=== PATIENT | male | born 1940 | race Caucasian/White ===

== ENCOUNTER 2018-10-31 15:51 | Inpatient (IN) | payer OTHER ==
[~2018-10-31] VITALS: Ht 172.7 cm; Wt 103.9 kg
--- NOTE | ~2018-10-31 | CON ---
[address] [address] CONSULTATION Name: KIRAN ANDREWS Room: [address] ADM IN M.R.#: [id number] Admission: 10/31/18 Attend Phys: John Rocha Discharge: Date of : 36 Report #: [id number] THIS REPORT FOR: //name// CC: Umesh Adams DO DATE OF SERVICE: 11/01/2018 REQUESTING PHYSICIAN: Roberto Adams DO. HISTORY OF PRESENT ILLNESS: This is an 78-year-old male with history of diabetes mellitus and renal disease who gets dialyzed routinely. The patient was admitted to hospital after his had found him lying on the floor on the day of admission. The patient claims that he was sitting on a chair and he slid and fell on the floor. He denies any loss of consciousness. We were consulted since the patient had reported a couple of days of diarrhea. Talking to nursing staff, the patient had only one stool today, which was formed. Nursing staff denied any hematochezia, melena or diarrhea. The patient denies any GI symptoms at this time as he denies nausea, vomiting, dyspepsia, GERD, dysphagia, abdominal pain, diarrhea or constipation. He admits to having a normal stool this morning. PAST MEDICAL HISTORY: Significant for history of kidney disease, receiving dialysis. The patient also has COPD, history of bilateral cataract surgery, history of CVA with residual left-sided weakness, hypertension, diabetes mellitus, dyslipidemia. ALLERGIES: No known drug allergy. MEDICATIONS: Please refer to hospital MAR. SOCIAL HISTORY: The patient is , lives at home and has kidney disease, receiving dialysis. The patient denies tobacco or alcohol use. FAMILY HISTORY: Noncontributory. PHYSICAL EXAMINATION: VITAL SIGNS: Reveals blood pressure of 132/57, respirations 22, pulse 62, temperature 36.8. LUNGS: Clear. CARDIOVASCULAR: Regular. ABDOMEN: Soft, nontender, nondistended. [place] [address] CONSULTATION Name: KIRAN ANDREWS Room: [address] IN [facility]#: [id number] Admission: 10/31/18 Attend Phys: John Rocha Discharge: Date of : 38 Report #: [id number] LABORATORY DATA: Reveal sodium of 140, potassium is 4.1, BUN is 25, creatinine is 2.5, glucose is 215, AST is 38, ALT is 30, alkaline phosphatase is 182, total bilirubin is 0.5, albumin is 2.6. INR is 1.0. WBC is 7.0 with hemoglobin of 11.3 and platelets of 210. IMAGING: Chest x-ray was obtained on admission after placement of a central vein catheter and this was negative. ASSESSMENT AND PLAN: A patient who was admitted to hospital after suffering a fall who had reported that he had diarrhea for the past couple of days, but currently denies any gastrointestinal symptoms and had a formed stool today. He is tolerating diet at this time and there are no alarming symptoms. We will follow up on p.r.n. basis. By: 1335 [id number] Palumbo MD /nt
[~2018-10-31 15:51] MED LIST: ALDACTONE25 MG PO; ASPIRIN EC81 M1 PO; ATORVASTATIN CA40 MG PO; BISAC-EVAC10 MG RECTAL; BISACODYL5 MG PO; BROVANA15 MCG/2 M INH; CARVEDILOL12.5 MG PO; CARVEDILOL25 MG; CLONIDINE HCL0.3 M2 PO; CLONIDINE0.1 PO; COLACE100 MG; DOXYCYCLINE 10100 MG PO; EPOGEN2000 UNIT/ IVPUSH; FISH OIL 1,001000 M2 PO; FISHOIL; HUMULIN N100 UNIT/1 SUBQ; HYDRALAZINE 5050 MG PO; HYDROCODON-ACE1 EAC5; HYDROCODON-ACE1 EAC7 PO; HYDROCODONE-AP1 EAC6 PO; LANTUS100 UNIT/M SUBQ; LASIX 20 MG TAB20 MG PO; LIDODERM 5%1 PATC1 TRANSDERM; MELATONIN5 M1 PO; MIACALCIN NASAL; NORVASC 5 MG TAB5 MG PO; NORVASC10 MG PO; NOVOLIN R100 UNIT/3 SUBQ; PANTOPRAZOLE SO40 M1 PO; PARICALCITOL1 MCG PO; PREDNISONE 10 M10 MG PO; SENNA-DOCUSATE1 EACH PO; SIMVASTATIN40 MG PO; TAMSULOSIN HCL0.4 MG PO; TYLENOL325 MG PO; VITAMIN B-121000 MCG PO; VITAMIN D1000 UNI1 PO; [UNRECOGNIZED DRUG - OTHER]
[2018-10-31 15:52] VITALS: BP 141/79
[2018-10-31 16:17] LABS: ABSOLUTE LYMPHOCYTES 0.6 thou/uL (0.8-5.3); ABSOLUTE MONOCYTES 0.6 thou/uL (0.0-1.2); ABSOLUTE NEUTROPHILS 5.8 thou/uL (1.6-8.1); BASOPHILS 0.2 %; EOSINOPHILS 0.3 %; HEMATOCRIT 35.3 % (42.0-52.0); HEMOGLOBIN 11.3 gm/dL (14.0-18.0); LYMPHOCYTES 8.5 %; MCH 28.4 pg (26.0-34.0); MCHC 32.1 g/dL (28.0-37.0); MCV 88.5 fL (80.0-100.0); MONOCYTES 7.9 %; MPV 8.4 fl. (7.2-11.1); NUCLEATED RBCS 0 /100WBC; PLATELET COUNT* 210 thou/uL (150-400); POLYS 83.1 %; RBC 3.98 mil/uL (4.50-6.00); RDW-CV 17.8 % (10.5-14.5)
[2018-10-31 16:26] LABS: ANION GAP 10 mmol/L (7-16); BUN 25 mg/dL (7-18); CALCIUM 9.4 mg/dL (8.5-10.1); CHLORIDE 102 mmol/L (98-107); CO2 28 mmol/L (21-32); CREATININE 2.5 mg/dL (0.6-1.3); GLUCOSE 90 mg/dL (70-99); POTASSIUM 4.1 mmol/L (3.5-5.1); SODIUM 140 mmol/L (136-145)
[2018-10-31 16:32] LABS: APTT 34.7 Seconds (25.0-31.3); PROTIME 10.6 Seconds (9.20-11.50)
[2018-10-31 16:36] LABS: ALBUMIN 2.6 g/dL (3.4-5.0); ALKALINE PHOSPHATASE 182 U/L (46-116); NT-PRO BRAIN NAT PEPTIDE 27826 pg/mL (<300); SGOT 38 U/L (15-37); SGPT 30 U/L (30-65); TOTAL BILIRUBIN 0.5 mg/dL (<0.1-1.0); TOTAL PROTEIN 7.3 g/dL (6.4-8.2); TROPONIN-I LEVEL <0.06 ng/mL (<0.06)
[2018-10-31 19:25] VITALS: BP 100/48
[2018-10-31 22:00] VITALS: BP 122/52
[2018-11-01] VITALS (7 sets, daily range): BP systolic 120–136; BP diastolic 52–64
--- NOTE | 2018-11-01 06:08 | NUR ---
PT ADMITTED TO ICU 1 FORM ER VIA STRETCHER, PT MOVED PER STAFF TO HOSPITAL BED. PT AAOX4, RESP REG AND UNALBORED SKIN W/D NO ACUTE DISTRESS NOTED. PT ORIENTED TO ROOM, BED CONTROL AND NURSE CALL SYSTEM EXPLAINED TO PATIENT. PT VERBALIZED GOOD UNDERSTANDING. VSS AND NO ACUTE CHANGES DURING NIGHT. PT DESATS WHEN SLEEPING AND O2 APPLIED AT 3L BNC. IT DESKTOP SUPPORT SPECIALIST INTACT WITH ALARMS SET. WILL CONTINUE OT MONITOR
--- NOTE | 2018-11-01 10:17 | EKG ---
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 : 1940 Requested By: Jimi Duong Order Number: [id number] MD: Andrez Eli Measurements Intervals [place] Rate: 103 P: MI: QRS: 7 QRSD: 96 T: 92 QT: 343 QTc: 449 Interpretive Statements sinus tachycardia artifact noted Low voltage, precordial leads Compared to ECG 10/25/2017 10:30:57 Low QRS voltage now present Sinus rhythm no longer present Electronically Signed On 11-01-2018 10:17:23 BALE PILER by Andrez Eli [email or web address] <ELECTRONICALLY SIGNED> By: Andrez Eli MD, FACC 11/01/18 1017 1602 1602 Andrez Eli MD, [facility] /EPI
--- NOTE | 2018-11-01 11:18 | NUR ---
Nutrition: Consult received stating "dialysis." Pt has HD MWF. Wt: 235#, BLE edema. diarrhea better, sepsis resolved. RX noted. Labs: BUN 25, cr 2.5, alb 2.6, prealb 11. Regular diet is ordered. Severely depleted visceral protein stores. Altered nutrition-related lab values R/T protein AEB labs, pt on HD. RD will order Beneprotein for added protein intake with meals. Mild risk at this time.
--- NOTE | 2018-11-01 11:24 | NUR ---
MET WITH PT TO DISCUSS HOME SITUATION/DC PLANNING. PT LIVES WITH HIS SON/PINEDA WHO IS HIS DPOA. PT IS INDEPENDENT WITH ADLS. USES WALKER AND HAS A SCOOTER HE USES WHEN HE GOES OUTSIDE 'IN THE YARD'. [facility]. SPOKE WITH ZINA THERE. THEY WILL NEED FLOW SHEETS AND DC INFO FAXED AT CT. PT HAS HAD HH WITH [facility] IN THE PAST AND WOULD LIKE TO USE THEM AGAIN AT [place]. HE HAS ALSO BEEN TO SNF AT [facility] AND [facility]. SPOKE WITH J[facility]ET/JOS[facility], THEY JUST DC'D PT ON 10/18 BUT WILL ACCEPT PT BACK AT DC. WILL NEED CALL AND ORDERS. [email or web address] [phone] FAX [phone] [facility] [phone] FAX [phone]
--- NOTE | 2018-11-01 14:55 | NUR ---
PATIENT ALERT AFIB PER MONITOR DENIES PAIN OR SOA. UP TO COMMODE TIMES 2. AFIB PER MONITOR.
[2018-11-01 19:08] LABS: GLYCOHEMOGLOBIN (HGB A1C) 6.6 % (4.8-5.6)
--- NOTE | 2018-11-01 19:27 | NUR ---
PATIENT TOLERATED DIALYSIS. ALERT DENIES DISTRESS TAKING PO WELL. REPORT GIVEN TO JINA VELAZQUEZFERED TO RM 228'
[2018-11-02] VITALS: BP 133/54
--- NOTE | 2018-11-02 00:10 | NUR ---
ASSESSMENT COMPLETE, REFER TO CHARTING FOR FURTHER DETAIL. PT IS MED SURG STATUS. PT DENIES PAIN, SOA, N/V/D. CLWR
[2018-11-02 02:53] LABS: URINE BILIRUBIN NEGATIVE (Negative); URINE BLOOD NEGATIVE (Negative); URINE CLARITY CLEAR; URINE COLOR YELLOW; URINE GLUCOSE-RANDOM TRACE (Negative); URINE KETONES NEGATIVE (Negative); URINE LEUKOCYTES-REFLEX NEGATIVE (Negative); URINE NITRITE-REFLEX NEGATIVE (Negative); URINE PROTEIN 1+ (Negative); URINE UROBILINOGEN 0.2 E.U./dl (0.2-1.0)
[2018-11-02 03:23] LABS: ABSOLUTE EOSINOPHILS 0.3 thou/uL (0.0-0.7); ABSOLUTE MONOCYTES 0.5 thou/uL (0.0-1.2); BASOPHILS 0.6 %; EOSINOPHILS 5.8 %; HEMATOCRIT 27.3 % (42.0-52.0); LYMPHOCYTES 21.7 %; MCH 28.7 pg (26.0-34.0); MCHC 32.8 g/dL (28.0-37.0); MCV 87.5 fL (80.0-100.0); MONOCYTES 9.6 %; MPV 8.2 fl. (7.2-11.1); NUCLEATED RBCS 0 /100WBC; PLATELET COUNT* 164 thou/uL (150-400); POLYS 62.3 %; RBC 3.12 mil/uL (4.50-6.00); RDW-CV 17.4 % (10.5-14.5); WBC 4.8 thou/uL (4.0-11.0)
[2018-11-02 03:25] LABS: HEMOGLOBIN 8.9 gm/dL (14.0-18.0)
[2018-11-02 03:38] LABS: CALCIUM 8.5 mg/dL (8.5-10.1); CREATININE 1.8 mg/dL (0.6-1.3); PHOSPHORUS* 3.8 mg/dL (2.5-4.9); POTASSIUM 3.6 mmol/L (3.5-5.1)
[2018-11-02 04:00] VITALS: BP 140/57
--- NOTE | 2018-11-02 05:32 | NUR ---
PATIENT RESTED IN BED, NO ACUTE CHANGES. PATIENT DID NOT SHOW SIGNS OF DISTRESS OR SOA. FALL PRECAUTIONS IN PLACE, CALL LIGHT WITH IN REACH, HOURLY ROUNDING OBSERVED, BED ALARM ON.
[2018-11-02 09:30] VITALS: BP 126/80
--- NOTE | 2018-11-02 10:00 | CON ---
[address] [address] CONSULTATION Name: KIRAN ANDREWS Room: [address] IN .R.#: [id number] Admission: 10/31/18 Attend Phys: John Rocha Discharge: Date of : 38 Report #: [id number] THIS REPORT FOR: //name// CC: Umesh Jerrytrudy Roberto Adams DATE OF SERVICE: 11/01/2018 NEPHROLOGY CONSULTATION CONSULTING PHYSICIAN: Roberto Adams DO. REASON FOR NEPHROLOGY CONSULTATION: End-stage renal disease. REASON FOR ADMISSION: Hypoglycemia and weakness. HISTORY OF PRESENT ILLNESS: This is a very pleasant 78-year-old male who has a past medical history of diabetes mellitus type 2, hypertension and end-stage renal disease, on hemodialysis every Tuesday, Tuesday and Tuesday at Dialysis Unit under the care of Dr. Montoya and was brought in because his blood glucose dropped and the patient was very weak. He also fell on the floor and he was given peanut butter and juice, but that did not improve his blood glucose. He is currently in the ICU and his blood glucose readings have improved. He also says that since he has been on dialysis, he has lost a lot of weight due to which he does not need that much insulin anymore and even he does not require oxygen anymore at home. He is currently a little bit short of breath and he does have lower extremity edema and his last dialysis was Tuesday. ALLERGIES: No known drug allergies. REVIEW OF SYSTEMS: As mentioned in the history of present illness. HOME MEDICATIONS: Include hydrocodone, Epogen, furosemide, melatonin, cyanocobalamin, acetaminophen, hydralazine, aspirin, tamsulosin, simvastatin, insulin glargine and Novolin insulin. PAST MEDICAL AND SURGICAL HISTORY: Diabetes mellitus type 2; hypertension; end-stage renal disease, on hemodialysis Tuesday, Tuesday and Tuesday through left arm AV fistula; hyperlipidemia; bilateral cataract surgery; history of CVA with left-sided weakness; tonsillectomy and COPD. FAMILY HISTORY: Noncontributory. SOCIAL HISTORY: He lives at home with his son. He does not smoke, drink alcohol [place] [address] CONSULTATION Name: KIRAN ANDREWS Room: [address]#: [id number] Admission: 10/31/18 Attend Phys: John Rocha Discharge: Date of : 38 Report #: [id number] PHYSICAL EXAMINATION: VITAL SIGNS: Blood pressure is 120/57, pulse rate is 76, respiratory rate is 23, pulse ox is 92% and he is on 3 liters of oxygen by nasal cannula and temperature is 36.4. GENERAL: He is awake, alert. He is oriented x3. HEAD, EYES, EARS, NOSE AND THROAT: Mucous membranes are moist. NECK: There is no JVD. CHEST: Diminished breath sounds bilaterally anteriorly. CARDIOVASCULAR: S1, S2 normal. No murmurs heard. ABDOMEN: Soft nondistended and nontender. Bowel sounds are present. EXTREMITIES: There is 2 to 3+ lower extremity edema bilaterally. DIALYSIS ACCESS: He has a left arm AV fistula with good bruit and good thrill. NEUROLOGICAL FUNCTION: Gross neurologic function is intact. PSYCHIATRIC: Mood and affect seem to be normal. LABORATORY DATA: Hemoglobin 11.3. His potassium is 4.1. Other labs were reviewed. Sodium was 140. IMAGING: Chest x-ray was reviewed. ASSESSMENT: 1. End-stage renal disease, on hemodialysis every Tuesday, Tuesday and Tuesday at Dialysis Unit. 2. Hypokalemia. 3. Diabetes type 2. 4. Hypoglycemia. 5. Hypertension. 6. History of chronic obstructive pulmonary disease. 7. Possible right lower lobe pneumonia, on antibiotics as per primary team. PLAN: Dialysis today. We will try to remove 4 to 4.5 liters off of him since he does look hypervolemic, as tolerated by him. His hemoglobin is currently at goal. He does not require any Epogen or iron at this time. Thank you for this consultation and we will continue to follow along with you for his dialysis needs. I discussed with the patient as well as the patient's nurse. <ELECTRONICALLY SIGNED> By: Cailtyn Gao MD 11/02/18 1000 [id number] Gao MD /nt
[2018-11-02 16:06] VITALS: BP 118/67
--- NOTE | 2018-11-02 18:20 | NUR ---
PT ALERT ORIENTED X 4. IV PATENT. DENIES PAIN. WEARS BRACE ON LEFT KNEE. FISTULA PRESENT LEFT UPPER ARM. UP TO CHAIR IN EVENING WITH GAIT BELT AND WALKER. OXYGEN @ 2 L/NC. VS STABLE. HOURLY ROUNDS MAINTAINED. CALL LIGHT WITHIN REACH.
[2018-11-02 19:00] VITALS: BP 144/64
[2018-11-03 05:00] LABS: HEMATOCRIT 28.7 % (42.0-52.0); HEMOGLOBIN 9.3 gm/dL (14.0-18.0); MCH 28.6 pg (26.0-34.0); MCHC 32.5 g/dL (28.0-37.0); MCV 87.9 fL (80.0-100.0); MPV 8.7 fl. (7.2-11.1); RBC 3.26 mil/uL (4.50-6.00); RDW-CV 17.7 % (10.5-14.5); WBC 5.3 thou/uL (4.0-11.0)
[2018-11-03 05:21] LABS: % SATURATION 38 % (20-39); IRON 46 ug/dL (50-175)
[2018-11-03 05:24] LABS: CALCIUM 8.7 mg/dL (8.5-10.1); CREATININE 2.4 mg/dL (0.6-1.3); POTASSIUM 3.7 mmol/L (3.5-5.1)
[2018-11-03 06:16] VITALS: BP 137/59
[2018-11-03 08:25] VITALS: BP 130/87
[2018-11-03 12:06] VITALS: BP 127/55
[2018-11-03 13:48] VITALS: BP 127/55
--- NOTE | 2018-11-03 13:51 | NUR ---
ORDERS NOTED FOR DC HOME. PT WOULD LIKE TO USE [facility], CALLED AND NOTIFIED [facility]OS[facility]. WILL FAX ORDERS WHEN RECEIVED. CALL TO [facility], NOTIFIED PT WILL RETURN TO REGULAR SCHEDULE ON TUESDAY. WILL FAX FLOW SHEETS AND UPDATED ORDERS WHEN RECEIVED. PT STATES HIS SON WILL PICK HIM UP.
[2018-11-03] MEDS ORDERED: LEVAQUIN 750 M750 MG PO (13:52)
[2018-11-03 14:11] VITALS: BP 127/55
[2018-11-03 17:17] VITALS: BP 127/55
--- NOTE | 2018-11-03 17:19 | NUR ---
PATIENT IS ALERT AND ORIENTED TODAY VERY PLEASANT. HAD DIALYSIS TODAY AND TOLERATED WELL. NO COMPLAINTS OF PAIN TODAY OTHER THAN IJ AND MIDLINE SITE IN NECK. VITAL SIGNS HAVE BEEN STABLE ON ROOM AIR TODAY. PATIENT IS DISCHARGED TO HOME WITH HOME HEALTH. DISCHARGE INSTRUCTIONS AND PRESCRIPTIONS GIVEN, QUESTIONS ANSWERED FOR PATIENT AND SON. LEFT VIA WHEELCHAIR TO HOME WITH HOME HEALTH.
== END 2018-11-03 17:20 | disposition home health service (06) | DRG 871 ==
LOC: M.ERS 15:51 → M.ICU 17:03 → M.TBA-ER 17:03 → M.ICU 19:37 → M.2W 11-01 19:44
PROVIDERS: Family Medicine; ADMIT Internal Medicine
PROC: 02HV33Z Insertion of Infusion Device into Superior Vena Cava, Percutaneous Approach (ICD-10-PCS; principal; 2018-10-31)
PROC: 5A1D70Z Performance of Urinary Filtration, Intermittent, Less than 6 Hours Per Day (ICD-10-PCS; 2018-11-03)
DX: A41.9 Sepsis, unspecified organism (principal); N18.6 End stage renal disease; J15.6 Pneumonia due to other Gram-negative bacteria; I69.354 Hemiplegia and hemiparesis following cerebral infarction affecting left non-dominant side; I12.0 Hypertensive chronic kidney disease with stage 5 chronic kidney disease or end stage renal disease; J44.0 Chronic obstructive pulmonary disease with (acute) lower respiratory infection; E78.5 Hyperlipidemia, unspecified; E87.6 Hypokalemia; E11.22 Type 2 diabetes mellitus with diabetic chronic kidney disease; E11.649 Type 2 diabetes mellitus with hypoglycemia without coma; T68.XXXA Hypothermia, initial encounter; D63.8 Anemia in other chronic diseases classified elsewhere; A08.4 Viral intestinal infection, unspecified; Z98.41 Cataract extraction status, right eye; Z98.42 Cataract extraction status, left eye; Z79.82 Long term (current) use of aspirin; Z79.899 Other long term (current) drug therapy; Z99.2 Dependence on renal dialysis

== ENCOUNTER 2018-11-25 05:05 | Emergency (ER) | payer OTHER ==
[~2018-11-25] VITALS: Ht 172.7 cm; Wt 100.7 kg
[~2018-11-25 05:05] MED LIST changes: +LEVAQUIN 750 M750 MG PO
[2018-11-25] MEDS ORDERED: PERCOCET PO (08:01)
[2018-11-25 08:05] VITALS: BP 115/50
== END 2018-11-25 08:19 | disposition home or self-care (01) ==
LOC: M.ERS 05:05
DX: M25.561 Pain in right knee (principal); I12.9 Hypertensive chronic kidney disease with stage 1 through stage 4 chronic kidney disease, or unspecified chronic kidney disease; E11.22 Type 2 diabetes mellitus with diabetic chronic kidney disease; N18.4 Chronic kidney disease, stage 4 (severe); J44.9 Chronic obstructive pulmonary disease, unspecified; E78.5 Hyperlipidemia, unspecified; Z99.2 Dependence on renal dialysis; Z86.73 Personal history of transient ischemic attack (TIA), and cerebral infarction without residual deficits

== ENCOUNTER 2018-12-08 22:45 | Inpatient (IN) | payer OTHER ==
[~2018-12-08] VITALS: Ht 172.7 cm; Wt 97.1 kg
--- NOTE | ~2018-12-08 | CON ---
[address] [address] CONSULTATION Name: KIRAN ANDREWS Room: [address] IN M.R.#: [id number] Admission: 12/09/18 Attend Phys: Jaime Hanna MD Discharge: 12/13/18 Date of : 38 Report #: [id number] THIS REPORT FOR: //name// CC: Jaime Hanna Umesh Morgan DATE OF SERVICE: 12/09/2018 REQUESTING PHYSICIAN: Jaime Hanna MD REASON FOR CONSULTATION: Assist in providing dialysis. HISTORY OF PRESENT ILLNESS: The patient is an 78-year-old gentleman. Medical history is significant for end-stage renal disease. He is being dialyzed on Tuesday, Tuesday, Tuesday schedule at [facility]. He had his dialysis yesterday. After dialysis, he felt too weak, went home and came back today and was admitted for evaluation for his weakness. PAST MEDICAL HISTORY: Significant for: 1. End-stage renal disease. 2. History of pancreatic cancer. 3. History of cerebrovascular accident. 4. History of diabetes mellitus type 2. 5. History of atrial fibrillation. It is not exactly clear, but we are standing on his pancreatic cancer. Apparently, the patient does not follow with any oncologist. SOCIAL HISTORY: No tobacco or alcohol abuse currently. MEDICATIONS: Reviewed. REVIEW OF SYSTEMS: Positive for weakness. Denies chest pain. Denies shortness of breath. PHYSICAL EXAMINATION: GENERAL: Awake, alert, oriented, no acute distress. VITAL SIGNS: Blood pressure 108/66, heart rate 77, afebrile. HEENT: Pupils are round. NECK: Fatty. LUNGS: Clear. CARDIOVASCULAR: Regular rate. ABDOMEN: Soft. LABORATORY DATA: Report potassium is 3.7, BUN 16, creatinine 2[place] [address] CONSULTATION Name: KIRAN ANDREWS ANGELA Room: [address]#: [id number] Admission: 12/09/18 Attend Phys: Jaime Hanna MD Discharge: 12/13/18 Date of : 38 Report #: [id number] ASSESSMENT: 1. End-stage renal disease. The patient had dialysis yesterday. 2. Admission for weakness. Workup is per primary care doctor. 3. Atrial fibrillation. 4. History of pancreatic cancer. PLAN: Follow his labs and I am planning to dialyze him again on Tuesday. By: [id number] Pozo MD /BEATRIZ
[~2018-12-08 22:45] MED LIST changes: +PERCOCET PO
[2018-12-08 22:46] VITALS: BP 124/61
[2018-12-08] MEDS ORDERED: ATORVASTATIN CA40 MG PO (22:56)
[2018-12-08] MEDS ORDERED: LASIX 20 MG TAB20 MG PO (22:56)
[2018-12-08] MEDS ORDERED: FLOMAX0.4 MG PO (22:57)
[2018-12-08] MEDS ORDERED: NORVASC5 MG PO (22:57)
[2018-12-08] MEDS ORDERED: RENA-VITE TABL0.8 MG PO (22:58)
[2018-12-08] MEDS ORDERED: HYDRALAZINE 2525 MG PO (22:58)
[2018-12-08] MEDS ORDERED: ASPIR 8181 MG PO (22:58)
[2018-12-08] MEDS ORDERED: [UNRECOGNIZED DRUG - OTHER] PO (23:00)
[2018-12-08] MEDS ORDERED: SENSIPAR 30 MG30 M1 PO (23:00)
[2018-12-08 23:41] LABS: ABSOLUTE LYMPHOCYTES 0.8 thou/uL (0.8-5.3); BASOPHILS 0.5 %; HEMATOCRIT 31.7 % (42.0-52.0); HEMOGLOBIN 10.5 gm/dL (14.0-18.0); LYMPHOCYTES 10.5 %; MCV 87.9 fL (80.0-100.0); MONOCYTES 12.9 %; MPV 8.8 fl. (7.2-11.1); NUCLEATED RBCS 0 /100WBC; PLATELET COUNT* 134 thou/uL (150-400); POLYS 76.1 %; RBC 3.61 mil/uL (4.50-6.00); RDW-CV 17.5 % (10.5-14.5); WBC 7.9 thou/uL (4.0-11.0)
[2018-12-08 23:51] LABS: CALCIUM 8.7 mg/dL (8.5-10.1); CREATININE 2.5 mg/dL (0.6-1.3); POTASSIUM 3.7 mmol/L (3.5-5.1)
[2018-12-09] VITALS (7 sets, daily range): BP systolic 108–140; BP diastolic 54–66
[2018-12-09 00:14] LABS: TOTAL BILIRUBIN 0.7 mg/dL (<0.1-1.0); TOTAL PROTEIN 5.6 g/dL (6.4-8.2)
[2018-12-09 00:16] LABS: TROPONIN-I LEVEL 0.8 ng/mL (<0.06)
--- NOTE | 2018-12-09 01:30 | NUR ---
RECEIVED REPORT FROM ER AND PT TO ROOM AT 0120. NO ACUTE DISTRESS. DENIES CP OR SOB. O2 ON AT 2L/NC, HOB ELEVATED. TELEMETRY APPLIED SHOWING A-FIB. SHAHRZAD LOWER LEGS, ANKLES AND FEET 2+ EDEMA. NO SKIN ISSUES NOTED TO BUTTOCKS, TOES OR OVER OTHER [place] AREAS. AV GRAFT NOTED TO LT UPPER ARM. PT FELL ASLEEP IN MIDDLE OF ADMISSION QUESTIONS AND AROUSED FOR BLOOD DRAW. WILL CONT TO MONITOR AND ASSIST NEEDED.
--- NOTE | 2018-12-09 06:31 | NUR ---
SLEPT WELL SINCE ADMISSION. TROP ELEVATED, DENIES CHEST PAIN OR SOB. O2 ON, HOB ELEVATED. TELEMETRY CONT TO SHOW A-FIB WITH OCC PVC. HOURLY ROUNDING OBSERVED.
--- NOTE | 2018-12-09 14:50 | NUR ---
INITIAL ASSESSMENT: Pt evaluated for d/c planning needs. Reviewed chart. Pt was hospitalized at [facility] in the past few months and returned home with [facility]. Pt lives with his son João. Pt has dialysis at [facility] . Pt uses walker or scooter for ambulation. Pt plans on returning home on d/c from hospital. Will remain available to assist as needed.
--- NOTE | 2018-12-09 16:16 | NUR ---
PT PROGRESSING TOWARDS GOALS THIS SHIFT. VSS. NO C/O CP. CT ABDOMEN TODAY. REFER TO RESULTS. PT STATES HE FEELS ' BETTER' TODAY. TELE REMAINS AFIB. NO OTHER CONCERNS AT THIS TIME. CLWR. WCTM.
--- NOTE | 2018-12-09 20:43 | NUR ---
DOCTOR KARIE, NOTIFIED OF PATIENT'S BLOOD SUGAR, NO NEW ORDERS.
[2018-12-10] VITALS: BP 123/50
--- NOTE | 2018-12-10 00:49 | NUR ---
PATIENT RESTED IN BED, NO ACUTE CHANGES. PATIENT DID NOT SHOW SIGNS OF DISTRESS OR SOA. FALL PRECAUTIONS IN PLACE, CALL LIGHT WITH IN REACH, HOURLY ROUNDING OBSERVED, BED ALARM ON.
[2018-12-10 04:00] VITALS: BP 107/48
[2018-12-10 05:16] LABS: HEMATOCRIT 33.3 % (42.0-52.0); HEMOGLOBIN 10.9 gm/dL (14.0-18.0); MCH 29.1 pg (26.0-34.0); MCHC 32.6 g/dL (28.0-37.0); MCV 89.2 fL (80.0-100.0); MPV 9.3 fl. (7.2-11.1); NUCLEATED RBCS 0 /100WBC; PLATELET COUNT* 127 thou/uL (150-400); RBC 3.74 mil/uL (4.50-6.00); RDW-CV 18.3 % (10.5-14.5); WBC 7.4 thou/uL (4.0-11.0)
[2018-12-10 05:27] LABS: CALCIUM 8.5 mg/dL (8.5-10.1); CREATININE 2.9 mg/dL (0.6-1.3); POTASSIUM 3.6 mmol/L (3.5-5.1)
[2018-12-10 06:17] LABS: ABSOLUTE LYMPHOCYTES 0.4 thou/uL (0.8-5.3); ABSOLUTE MONOCYTES 0.3 thou/uL (0.0-1.2); ABSOLUTE NEUTROPHILS 6.7 thou/uL (1.6-8.1); ANISOCYTOSIS 1+; PLATELET ESTIMATE ADEQUATE
[2018-12-10 07:58] VITALS: BP 116/58
[2018-12-10 11:49] VITALS: BP 102/45
--- NOTE | 2018-12-10 12:28 | EKG ---
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: : 1940 Requested By: Rusty Crawford Order Number: [id number] MD: Jian Wilcox Measurements Intervals [place] Rate: 83 P: SC: QRS: 2 QRSD: 98 T: 48 QT: 407 QTc: 479 Interpretive Statements Atrial fibrillation Nonspecific T abnormalities, anterior leads Borderline prolonged QT interval No previous ECG available for comparison Electronically Signed On 12-10-2018 12:28:18 FOREIGN SERVICE OFFICER by Jian Wilcox [email or web address] <ELECTRONICALLY SIGNED> By: Jian Wilcox MD, [facility] 12/10/18 1228 04 04 Jian Wilcox MD, FACC /EPI
--- NOTE | 2018-12-10 15:20 | NUR ---
PT SOMEWHAT PROGRESSING TOWARDS GOALS THIS SHIFT. VSS. PT HAS C/O BLE WEAKNESS AND PAIN. PT GIVEN PRN HYDROCODONE FOR WEAKNESS. PT ABLE [place] WITH [place] [facility] [place] NO C/O CHEST PAIN. CONTINUES IN AFIB. NO OTHER CONCERNS AT THIS TIME. CLWR. WCTM.
[2018-12-10 15:26] VITALS: BP 111/50
[2018-12-10 19:45] VITALS: BP 109/59
--- NOTE | 2018-12-10 23:06 | NUR ---
RECEIVED REPORT AND ASSUMED CARE AT 1900. BP LOW, OTHERWISE VSS. CARDIAC MONITORING IN PLACE. PT DENIES ANY COMPLAINTS OF PAIN. ASSESSMENT COMPLETED CHARTED. DISCUSSED PLAN OF CARE WITH PT, VERBALIZED UNDERSTANDING. PT UP WITH ASSIST OF TWO TO BSC. BED LOCKED IN LOWEST POSTION, CALL LIGHT WITHIN REACH, BED ALARM ON. WILL CONTINUE TO MONITOR FOR REMAINDER OF THE SHIFT
[2018-12-11] VITALS (7 sets, daily range): BP systolic 97–124; BP diastolic 51–71
[2018-12-11 05:42] LABS: CALCIUM 8.3 mg/dL (8.5-10.1); CREATININE 3.5 mg/dL (0.6-1.3); POTASSIUM 3.9 mmol/L (3.5-5.1)
--- NOTE | 2018-12-11 10:40 | NUR ---
ASSUMED CARE OF PT THIS AM AROUND 0715- MEDICAL CHIEF TECHNICIAN IN PLACE ORDERED, TRACING A-FIB/RATE CONTROLED- UPON ASSESSMENT PT NOTED TO BE RESTING IN BED, WATCHING TV- PT A&O X4- CONTINENT OF BOWEL AND BLADDER/REPORTED OLIGURIA R/T DIALYSIS- ASSIST X1 WITH TRANSFERS- ABD SOFT/DISTENEDED/NON-TENDER, BS X4 QUADS- LAST BM REPORTED 12/10/18- IV NOTED TO RIGHT AC INTACT AND SL- LUE FISTULA NOTED WITH POSTIVE BRUIT- GOOD PO INTAKE NOTED THIS AM WITH BREAKFAST, BS MONITORED ORDERED- PT DENIES ANY C/O PAIN/DISCOMFORT AT THIS TIME- CALL LIGHT AND PERSONAL BELONGINGS WITH IN REACH- HOURLY ROUNDS IN PLACE R/T SAFETY/NEEDS- ALL NEEDS MET AT THIS TIME-WCTM
--- NOTE | 2018-12-11 12:47 | CON ---
[address] [address] CONSULTATION Name: KIRAN ANDREWS Room: [address] IN M.R.#: [id number] Admission: 12/09/18 Attend Phys: Jaime Hanna MD Discharge: 12/13/18 Date of : 36 Report #: [id number] THIS REPORT FOR: //name// CC: Jaime Morgan DO DATE OF SERVICE: 12/09/2018 CARDIOLOGY CONSULTATION INDICATION: Elevated troponin and atrial fibrillation. HISTORY OF PRESENT ILLNESS: The patient is a very pleasant 78-year-old gentleman who was admitted to the hospital after having an episode of chills at dialysis followed by significant weakness and inability to get up from bed. The patient has end-stage renal disease and dialyzes 3 times weekly. In this setting, labs were checked and revealed a minimally elevated troponin of 0.7, 0.8 and 0.9. He is having no chest pain. EKG shows atrial fibrillation with a controlled ventricular response rate. There are no acute ST or T-wave abnormalities noted. He has a history of chronic diastolic heart failure. He has history of type 2 diabetes mellitus. He had a stroke remotely with some left-sided weakness. He has hyperlipidemia. More recently, apparently in July, he was diagnosed with adenocarcinoma of the pancreas. From review of the records, I am unsure of any treatment given. He did have a biliary stent placed for obstructive jaundice. ALLERGIES: None documented. CURRENT MEDICATIONS: Atorvastatin 40 mg at bedtime, Flomax 0.4 mg daily, furosemide 20 mg daily, Norvasc 5 mg b.i.d., hydralazine 50 mg t.i.d., aspirin 81 mg daily, renal vitamins daily, Auryxia 210 mg daily, Sensipar 30 mg daily. SOCIAL HISTORY: The patient is retired. He does not smoke. He does not drink alcohol. REVIEW OF SYSTEMS: A 14-point review of systems positive for generalized weakness, especially in the legs, COPD and obstructive sleep apnea, heart murmur as a child, type 2 diabetes mellitus, recently diagnosed pancreatic cancer, and he wears glasses. Otherwise, 14-point review of systems was unremarkable. PHYSICAL EXAMINATION: VITAL SIGNS: Blood pressure 108/66, pulse is in the 70s and irregular. GENERAL: This is a pleasant, moderately obese gentleman, in no distress. Mood and affect appropriate. HEENT: Extraocular muscles intact. [place] [address] CONSULTATION Name: KIRAN ANDREWS Room: [address]#: [id number] Admission: 12/09/18 Attend Phys: Jaime Hanna MD Discharge: 12/13/18 Date of : 36 Report #: [id number] NECK: Shows no jugular venous distention. CHEST: Reveals clear lung bae. CARDIOVASCULAR: Reveals an irregularly irregular rhythm. Rate is controlled. I do not appreciate gallop or murmur. ABDOMEN: Reveals a protuberant abdomen, soft and nontender. EXTREMITIES: Shows 2+ edema to the knees bilaterally. SKIN: Dry. A 12-lead EKG shows atrial fibrillation with a controlled ventricular response rate. There were no significant ST or T-wave abnormalities noted. LABORATORY DATA: Reviewed. Sodium 137, potassium 3.7, chloride 101, bicarbonate 29, BUN 16, creatinine 2.5, serum glucose 162, AST 102. Total bilirubin 0.7, calcium 8.7, alkaline phosphatase 1122, ALT 98, total protein 5.6, albumin 2.0. EGFR 25, lactic acid 1.3. Troponins 0.8, 0.9, 0.79 and 0.53 serially. NT-proBNP 31,596. White blood cell count 7.9, hemoglobin 10.5, platelet count 134,000. Chest x-ray demonstrates opacification of the right lung base suggesting right knee effusion. IMPRESSION AND RECOMMENDATIONS: 1. Atrial fibrillation with controlled ventricular response rate. No need for additional rate controlling medications at this time. Although he has an elevated CHADS score, I think the risk for anticoagulating him with his comorbidities is significant. At this point in time, I would not recommend anticoagulation. 2. Acute on chronic diastolic heart failure. We will continue dialysis per nephrology. He is dependent on dialysis for volume control. 3. Diabetes. Treatment per primary physician. 4. Hypertension. Blood pressure adequately controlled. 5. Hyperlipidemia, on atorvastatin. 6. Adenocarcinoma of the pancreas. <ELECTRONICALLY SIGNED> By: Jian Wilcox MD, FACC 12/11/18 1247 1226 1926Jian Wilcox MD, FACC /nt
--- NOTE | 2018-12-11 12:47 | NUR ---
CONTINUE TO FOLLOW, DISCUSSED WITH DR FULLER AND MET WITH PT. HE IS INTERESTED IN SNF. WOULD LIKE TO GO TO [facility] HE HAS BEEN THERE IN THE PAST AND WAS PLEASED WITH THE CARE. CALLED AND FAXED REFERRAL TO [facility] THEY ARE THE SISTER FACILITY AND ANDRZEJ AT IS OFF TODAY. WILL NEED [employer] AUTH PRIOR TO ACCEPTING. PT UPDATED, AWAIT DECISION
--- NOTE | 2018-12-11 13:05 | NUR ---
Nutrition: Consult for "DM and dialysis." Pt sees RD in HD clinic outpatient. He was not intersted in nutrition education today. Hopeful for discharge to facility today. H/o HTN, afib. CKD on HD x1 year. Alb 2, prealb 10. 2gm Na diet. Wt: 224#. RD gave pt some handouts on CHO control. Pt took papers but not interested in conversation. Discussed a few things on carbs briefly. RECOMMEND FOLLOWING DIALYSIS RD VERY CLOSELY. Mild risk.
--- NOTE | 2018-12-11 16:28 | NUR ---
PT CURRNELTY OFF UNIT IN DIALYSIS- CARDAIC MONITOR IN PLACE ORDERED. TRACING A-FIB- IV TO RIGHT AC INTACT AND SL- FAIR PO INTAKE NOTED THIS SHIFT WITH MEALS- BLOOD SUGARS MONITORED ORDERED, SSI PRESCIBED- D/C TO SKILLED FACILITY ON HOLD PENDING INSURANCE AUTHORIZATION- CALL NEEDS MET AT THIS TIME-[facility]
[2018-12-12] VITALS (7 sets, daily range): BP systolic 103–130; BP diastolic 50–64
--- NOTE | 2018-12-12 05:37 | NUR ---
PT IS ABLE TO COMMUNICATE HIS NEEDS TO STAFF EFFECTIVELY. CURRENT PAIN MEDICATION REGIMEN HAS BEEN ADEQUATE FOR CONTROLLING HIS PAIN UP TO THIS TIME. LEFT ARM LIMB ALERT- FISTULA. HE HAD DIALYSIS ON 12/11 AND IS CURRENTLY FOLLOWING A M/W/F SCHEDULE. POSSIBLE DISCHARGE LATER TODAY.
--- NOTE | 2018-12-12 10:00 | NUR ---
CONTINUE TO FOLLOW, SPOKE WITH [facility]. THEY CAN ACCEPT PT TODAY AND HAVE AUTH. [facility] ASKED ABOUT GETTING PT'S DIALYSIS ARRANGED AT THE [facility] IN , CALLED TO ARRANGE BUT HAD TO LEAVE MESSAGE. FAXED FLOW SHEET, DC ORDERS AND H/P, RENAL CONSULT TO [facility]. AWAIT CALL BACK FROM [facility] PT UPDATED
--- NOTE | 2018-12-12 21:38 | NUR ---
PATIENT TRANSFERRED FROM TELEMETRY TO ROOM 106 AT APPROXIMATELY 2100. VSS ON RA. REPORT GIVEN FROM TELEMETRY NIGHT NURSE. ORTHO NURSE AGREES WITH ASSESSMENT. PATIENT INSTRUCTED TO USE CALL LIGHT WHEN NEEDING ASSISTANCE. HOURLY ROUNDS TO BE MADE. WILL CONTINUE WITH PLAN OF CARE AND NURSING TO MONITOR.
[2018-12-13 04:26] LABS: ABSOLUTE EOSINOPHILS 0.1 thou/uL (0.0-0.7); ABSOLUTE MONOCYTES 0.6 thou/uL (0.0-1.2); ABSOLUTE NEUTROPHILS 3.9 thou/uL (1.6-8.1); BASOPHILS 0.5 %; EOSINOPHILS 2.2 %; HEMATOCRIT 30.2 % (42.0-52.0); LYMPHOCYTES 16.9 %; MCH 29.7 pg (26.0-34.0); MCV 89.8 fL (80.0-100.0); MONOCYTES 10.9 %; NUCLEATED RBCS 0 /100WBC; PLATELET COUNT* 144 thou/uL (150-400); POLYS 69.5 %; RBC 3.36 mil/uL (4.50-6.00); RDW-CV 18.1 % (10.5-14.5); WBC 5.7 thou/uL (4.0-11.0)
[2018-12-13 04:39] LABS: CALCIUM 8.1 mg/dL (8.5-10.1); CREATININE 3.2 mg/dL (0.6-1.3); POTASSIUM 4.1 mmol/L (3.5-5.1)
--- NOTE | 2018-12-13 05:33 | NUR ---
PATIENT HAS SLEPT WELL THROUGHOUT THE NIGHT. VSS ON RA. NO C/O PAIN. MEDICATIONS GIVEN ORDERED AND CHARTED. PATIENT USES BEDSIDE URINAL. IV IN RIGHT AC-SL. PATIENT INSTRUCTED TO USE CALL LIGHT WHEN NEEDING ASSISTANCE. HOURLY ROUNDS MADE. WILL CONTINUE WITH PLAN OF CARE AND NURSING TO MONITOR.
[2018-12-13 07:40] VITALS: BP 110/58
[2018-12-13 07:55] VITALS: BP 110/58
--- NOTE | 2018-12-13 08:52 | NUR ---
CALL TO YOLI AT [facility]. SHE STATED THEY HAVE RECEIVED INFO REQUESTING PT TO GO TO THEIR CLINIC WHILE IN SNF AT , THEY HAVE SUBMITTED AND WAITING ON AUTH. STATED IT COULD TAKE A 'DAY OR TWO.' SHE WAS AWARE PT HAD BEEN THERE BEFORE. UPDATED NOAM/NORMA EXTENSION COURSE COORDINATOR.
--- NOTE | 2018-12-13 14:57 | 2DMMODE ---
[place] [address] 2 D/M-MODE ECHOCARDIOGRAM Name: KIRAN ANDREWS Room: [address] IN [facility]#: [id number] Admission: 12/09/18 Attend Phys: Jaime Hanna, Discharge: 12/13/18 Date of : 36 Date of Service: 12/13/18 1457 Report #: [id number] THIS REPORT FOR: //name// APPROVED REPORT Study performed: 12/13/2018 13:48:33 EXAM: Comprehensive 2D, Doppler, and color-flow Echocardiogram Patient Location: In-Patient Room #: [facility] Status: routine BSA: 2.10 HR: 79 bpm BP: 110/58 mmHg Rhythm: Atrial Fibrillation Other Information Study Quality: Good Indications Atrial Fibrillation Elevated Troponin 2D Dimensions IVSd: 14.61 (7-11mm) LVOT Diam: 19.89 (18-24mm) LVDd: 41.91 mm PWd: 11.94 (7-11mm) Ascending Ao: 32.93 (22-36mm) LVDs: 29.07 (25-40mm) Aortic Root: 30.68 mm Volumes Left Atrial Volume (Systole) LA ESV Index: 52.50 mL/m2 Aortic Valve AoV Peak Lionel.: 1.41 m/s AO Peak Gr.: 7.97 mmHg LVOT Max P.80 mmHg AO Mean Gr.: 4.64 mmHg LVOT Mean P.22 mmHg LVOT Max V: 1.10 m/s AO V2 VTI: 26.88 cm LVOT Mean V: 0.68 m/s BOBBY (VTI): 2.28 cm2 LVOT V1 VTI: 19.76 cm Mitral Valve MV Decel. Time: 227.82 ms MV PHT: 66.07 ms MVA (PHT): 3.33 cm2 [place] [address] 2 D/M-MODE ECHOCARDIOGRAM Name: KIRAN ANDREWS Room: [address]#: [id number] Admission: 12/09/18 Attend Phys: Jaime Hanna, Discharge: 12/13/18 Date of : 36 Date of Service: 12/13/18 1457 Report #: [id number] TDI Medial E' Lionel.: 0.10 m/s Lateral E' Lionel.: 0.15 m/s Pulmonary Valve PV Peak Lionel.: 1.02 m/s PV Peak Gr.: 4.17 mmHg Tricuspid Valve RAP Estimate: 15.00 mmHg TR Peak Gr.: 40.29 mmHg RVSP: 55.00 mmHg PA Pressure: 55.00 mmHg Left Ventricle The left ventricle is normal size. There is normal LV segmental wall motion. Mild concentric left ventricular hypertrophy. Left ventricular systolic function is normal. The left ventricular ejection fraction is within the normal range. LVEF is 50-55%. This study is not technically sufficient to allow evaluation of the LV diastolic function due to atrial fibrillation. Right Ventricle The right ventricle is normal size. The right ventricular systolic function is normal. Atria Left atrium is moderately dilated. Atrial septal aneurysm is present. Right atrium is mildly dilated. Aortic Valve Mild aortic valve sclerosis. No aortic regurgitation is present. There is no aortic valvular stenosis. Mitral Valve Mild mitral annular calcification. Trace mitral regurgitation. No evidence of mitral valve stenosis. Tricuspid Valve The tricuspid valve is normal in structure. Mild tricuspid [place] [address] 2 D/M-MODE ECHOCARDIOGRAM Name: KIRAN ANDREWS Room: [address] [place] ..#: [id number] Admission: 12/09/18 Attend Phys: Jaime Hanna, Discharge: 12/13/18 Date of : 36 Date of Service: 12/13/18 1457 Report #: [id number] Pulmonic Valve Pulmonic valve is grossly normal in structure. There is no pulmonic valvular regurgitation. Great Vessels The aortic root is normal in size. IVC is dilated and collapses <50% with inspiration. Pericardium There is no pericardial effusion. <Conclusion> The left ventricle is normal size. Mild concentric left ventricular hypertrophy. Left ventricular systolic function is normal. The left ventricular ejection fraction is within the normal range. LVEF is 50-55%. This study is not technically sufficient to allow evaluation of the LV diastolic function due to atrial fibrillation. The right ventricle is normal size. Left atrium is moderately dilated. Right atrium is mildly dilated. Mild aortic valve sclerosis. No aortic regurgitation is present. There is no aortic valvular stenosis. Mild mitral annular calcification. Trace mitral regurgitation. No evidence of mitral valve stenosis. The tricuspid valve is normal in structure. Mild tricuspid regurgitation. IVC is dilated and collapses <50% with inspiration. There is no pericardial effusion. There is normal LV segmental wall motion. Atrial septal aneurysm is present. <ELECTRONICALLY SIGNED> By: Harley Bryant MD, FACC 12/13/18 1457 1457 [id number] Harley Bryant MD, FACC /INF
--- NOTE | 2018-12-13 17:10 | NUR ---
ASSUMED CARE OF PATIENT AT APPROX 0730. ALERT AND ORIENTED X4. ASSESSMENT COMPLETED AND CHARTED. VSS ON ROOM AIR. NO COMPLAINTS OF PAIN, NAUSEA, OR SOA. UP TO DIALYSIS AT APPROX 0900 AND RETURNED TO UNIT AT APPROX 1230. ECHO DONE BEFORE DISCHARGE. PATIENT DISCHARGED TO SKILLED FACILITY AT 1700 WITH ALL PERSONAL BELONGS AND DISCHARGE PACKET.
== END 2018-12-13 17:00 | DRG 291 ==
LOC: M.ERS 22:45 → M.TBA-ER 12-09 00:32 → M.ORTHSURG 12-09 00:32 → M.2W 12-09 00:32 → M.ORTHSURG 12-12 21:32
PROVIDERS: Emergency Medicine Emergency Medical Services; Internal Medicine; Internal Medicine Nephrology; ADMIT Internal Medicine
PROC: 5A1D70Z Performance of Urinary Filtration, Intermittent, Less than 6 Hours Per Day (ICD-10-PCS; principal; 2018-12-13)
DX: I13.2 Hypertensive heart and chronic kidney disease with heart failure and with stage 5 chronic kidney disease, or end stage renal disease (principal); I50.33 Acute on chronic diastolic (congestive) heart failure; N18.6 End stage renal disease; I48.91 Unspecified atrial fibrillation; E78.00 Pure hypercholesterolemia, unspecified; E86.1 Hypovolemia; E11.22 Type 2 diabetes mellitus with diabetic chronic kidney disease; Z99.2 Dependence on renal dialysis; Z85.07 Personal history of malignant neoplasm of pancreas; Z86.73 Personal history of transient ischemic attack (TIA), and cerebral infarction without residual deficits; Z79.82 Long term (current) use of aspirin; Z79.899 Other long term (current) drug therapy